=== PATIENT | female | born 2005 | race Caucasian/White ===

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

== ENCOUNTER 2025-03-07 11:43 | Outpatient (CLI) | payer OTHER, SELFPAY ==
--- NOTE | ~2025-03-07 | CT_ITS ---
CLINICAL INDICATION: Back pain with a history of kidney stones COMPARISON: 12/05/2020 which demonstrated a left-sided UVJ stone and mild obstructive nephropathy. TECHNIQUE: Multiple contiguous axial images of the abdomen and pelvis were performed without the admi nistration of intravenous contrast The dose-length product (DLP) was 309.36 mGy-cm. Automated exposure control and iterative reconstruction technique were employed. FINDINGS/OBSERVATIONS: Visualized lower thorax: The bilateral lung bases are clear. The heart is of normal size, without pericardial effusion. Small hiatal hernia is present. Liver: The liver demonstrates homogeneous attenuation and is not enlarged. Gallbladder and biliary system: The gallbladder is only minimally distended, and otherwise unremarkable. Pancreas: Limited evaluation of the pancreas secondary to the lack of intravenous contrast. Spleen: The spleen demonstrates homogeneous attenuation and is not enlarged. Kidneys: Increased attenuation is identified diffusely within the central most cortex of the bilatera l kidneys, findings suggesting medullary nephrocalcinosis. Mild right-sided hydroureteronephrosis. The lack of intra-abdominal fat precludes adequate evaluation of the entirety of the right ureteral course. A 3 mm calcification is identified within the right hemipelvis, likely within the right ureterovesicu lar junction, as this is a new finding from 12/05/2020. The remainder of the bilateral kidneys are otherwise unremarkable, without significant hydronephrosis or additional renal calculi. Adrenal glands: Unremarkable. Gastrointestinal tract: Fecal stasis within the colon, specifically the right hemipelvis. Appendix: The air-filled appendix is of normal caliber (axial series, images 96 through 118). Vasculature: Unremarkable. Lymph nodes: Limited evaluation without intravenous contrast Pelvic structures: The bladder is decompressed with a (likely) right UVJ stone. The uterus is retroverted and retroflexed, and otherwise unremarkable. Body wall and musculoskeletal: No significant degenerative disease within the lower thoracic or lumbosacral spine. IMPRESSION: Mild right-sided hydroureteronephrosis with a (likely) 3 mm calculus at the right UVJ, as detailed ab ove. Reviewed, dictated and finalized at location A. IMPRESSION: Mild right-sided hydroureteronephrosis with a (likely) 3 mm calculus at the rig ht UVJ, as detailed above.
== END 2025-03-07 11:44 | disposition home or self-care (01) ==
PROVIDERS: PCP Student in an Organized Health Care Education/Training Program; Visit Provider Student in an Organized Health Care Education/Training Program
DX: M54.9 Dorsalgia, unspecified (principal)
CPT/HCPCS: 74176